=== PATIENT | male | born 1975 | race Caucasian/White ===

== ENCOUNTER → 2017-07-15 | Outpatient (CLI) | payer OTHER ==
[~2017-07-15] MED LIST: ALBUTEROL2.5 MG/3 M IH; AZITHROMYCIN 2250 MG PO; ERYTHROMYCIN E3.5 G3 OPHTHALMIC; FLEXERIL PO; NORCO 5-325 TA1 EAC1 PO; OMEPRAZOLE40 MG PO; PROMETHAZINE-D120 ML PO; PROTONIX40 M2; VICODIN 5-5001 EACH PO; VITAMIN B-12500 MCG PO; VITAMIN E400 UNIT PO; VITAMINC500 PO
== END ==
LOC: M.MRI 08:02
DX: M54.2 Cervicalgia (principal)

== ENCOUNTER → 2018-05-09 | Outpatient (CLI) | payer OTHER ==
[2018-05-09 10:29] LABS: ABSOLUTE BASOPHILS 0.1 thou/uL (0.0-0.2); ABSOLUTE EOSINOPHILS 0.2 thou/uL (0.0-0.7); ABSOLUTE LYMPHOCYTES 1.4 thou/uL (0.8-5.3); ABSOLUTE MONOCYTES 0.4 thou/uL (0.0-1.2); BASOPHILS 1.3 %; EOSINOPHILS 4.7 %; HEMATOCRIT 41.4 % (42.0-52.0); LYMPHOCYTES 28.2 %; MCH 28.4 pg (26.0-34.0); MCHC 33.9 g/dL (28.0-37.0); MCV 83.8 fL (80.0-100.0); MONOCYTES 7.4 %; MPV 7.6 fl. (7.2-11.1); NUCLEATED RBCS 0 /100WBC; PLATELET COUNT* 293 thou/uL (150-400); POLYS 58.4 %; RBC 4.94 mil/uL (4.50-6.00); RDW-CV 13.8 % (10.5-14.5); WBC 5.1 thou/uL (4.0-11.0)
[2018-05-09 10:43] LABS: ALBUMIN 3.8 g/dL (3.4-5.0); ALKALINE PHOSPHATASE 69 U/L (46-116); ANION GAP 6 mmol/L (7-16); BUN 18 mg/dL (7-18); CALCIUM 8.8 mg/dL (8.5-10.1); CHLORIDE 105 mmol/L (98-107); CHOLESTEROL 121 mg/dL (<200); CO2 29 mmol/L (21-32); CREATININE 1.1 mg/dL (0.6-1.3); DIRECT BILIRUBIN 0.1 mg/dL (<0.1-0.3); GLUCOSE 123 mg/dL (70-99); HDL CHOLESTEROL 40 mg/dL (>40); LDL CHOLESTEROL 69 mg/dL (<100); SGOT 17 U/L (15-37); SGPT 31 U/L (30-65); SODIUM 140 mmol/L (136-145); TOTAL BILIRUBIN 0.4 mg/dL (<0.1-1.0); TOTAL PROTEIN 7.3 g/dL (6.4-8.2); TRIGLYCERIDE 63 mg/dL (<150); VLDL 13 mg/dL (<40)
[2018-05-09 10:45] LABS: SERUM ASSESSMENT Clear
[2018-05-10 03:11] LABS: GLYCOHEMOGLOBIN (HGB A1C) 5.7 % (4.8-5.6)
== END ==
LOC: M.LAB 09:58
PROVIDERS: Registered Nurse Diabetes Educator
DX: Z00.00 Encounter for general adult medical examination without abnormal findings (principal); Z13.220 Encounter for screening for lipoid disorders; Z13.1 Encounter for screening for diabetes mellitus; Z12.5 Encounter for screening for malignant neoplasm of prostate

== ENCOUNTER → 2018-11-07 | Day surgery (SDC) | payer OTHER | END | disposition home or self-care (01) | LOC: M.SUR 06:33 | DX: K43.6 Other and unspecified ventral hernia with obstruction, without gangrene (principal); Z79.899 Other long term (current) drug therapy ==

== ENCOUNTER → 2019-05-08 | Outpatient (CLI) | payer OTHER ==
--- NOTE | 2019-05-08 17:27 | EXE ---
[place] [address] STRESS ECHOCARDIOGRAM Name: JUSTUS MONROE Room: [facility]#: [id number] Admission: 05/08/19 Attend Phys: Jose A Ray MD Discharge: Date of : 71 Date of Service: 05/08/19 1726 Report #: [id number] THIS REPORT FOR: cc: Terry Gaspar MD, Kevin R. MD Blick,Jose A Pastrana MD [facility] ~ THIS REPORT FOR: //name// APPROVED REPORT Study performed: 05/08/2019 15:35:10 Exam: Dobutamine Stress Echo Indication: Syncope Patient Location: Out-Patient Stress Nurse: Susan Mason RN Supervising Physician: Jose A Ray MD Ht: 6 ft 1 in HR: 67 bpm BP: 149/92 mmHg Medical History Cardiac Risk Factors: FHX of CAD Procedure The patient underwent a Pharmacological Stress Test using Dobutamine. Blood pressure, heart rate, and EKG were monitored. An Echocardiogram was performed by sample prep technician in four stages in quad fashion. At peak stress, four selected images were obtained and placed side by side with resting images for comparison. Stress Test Details Stress Test: Pharmacological Stress Test using Dobutamine. Reason for pharmacologic stress test: physical limitation. HR Resting HR: 67 bpm Max Heart Rate (APMHR): 175 bpm Max HR Achieved: 141 bpm Target HR (85% APMHR): 148 bpm % of APMHR: 80 Recovery HR: 86 bpm HR response to stress: Normal HR response to stress BP Resting BP: 149/92 [place] [address] STRESS ECHOCARDIOGRAM Name: JUSTUS MONROE Room: [facility]#: [id number] Admission: 05/08/19 Attend Phys: Jose A Ray MD Discharge: Date of : 71 Date of Service: 05/08/19 1726 Report #: [id number] Max BP: 196/77 mmHg Recovery BP: 145/87 mmHg BP response to stress: Normal blood pressure response to stress. ECG Resting ECG: Sinus Rhythm Stress ECG: Sinus Tachycardia ST Change: Normal Maximum ST Deviation: 0 mm Arrhythmia: VPC's Recovery ECG: Sinus Rhythm Recovery ST Change: Normal Recovery ST Deviation: 0 mm Recovery Arrhythmia: None Clinical Reason for Termination: Completed protocol Pre-Stress Echo The resting Echocardiogram showed normal left ventricular contractility with an estimated Ejection Fraction of about 55-60%. Post-Stress Echo The stress Echocardiogram showed normal left ventricular contractility with an estimated Ejection Fraction of about >70%. Compared to rest, there were no stress-induced wall motion abnormalities. Conclusion Clinical Response: Non-ischemic Stress ECG Response: Non-ischemic Stress Echo Images: Non-ischemic low rist dobutamine stress echo for predicting future cardiac events Other Information Study Quality: Good <Conclusion> low rist dobutamine stress echo for predicting future cardiac events <ELECTRONICALLY SIGNED> By: Jose A Ray MD, [facility] 05/08/191725 25 25 Jose A Ray MD, FAC /INF
== END ==
LOC: M.CRD 04-19 15:00
DX: R55 Syncope and collapse (principal)

== ENCOUNTER 2020-02-03 12:23 | Emergency (ER) | payer OTHER ==
[~2020-02-03] VITALS: Ht 185.4 cm; Wt 122.5 kg
[2020-02-03 13:30] VITALS: BP 133/78
== END 2020-02-03 13:30 | disposition home or self-care (01) ==
LOC: M.ERS 12:23
DX: S61.411A Laceration without foreign body of right hand, initial encounter (principal); W25.XXXA Contact with sharp glass, initial encounter; Y93.89 Activity, other specified; Y92.89 Other specified places as the place of occurrence of the external cause; Y99.8 Other external cause status

== ENCOUNTER → 2020-06-06 | Outpatient (CLI) | payer OTHER ==
[2020-06-06 08:43] LABS: ABSOLUTE BASOPHILS 0.1 thou/uL (0.0-0.2); ABSOLUTE EOSINOPHILS 0.2 thou/uL (0.0-0.7); ABSOLUTE LYMPHOCYTES 1.7 thou/uL (0.8-5.3); ABSOLUTE MONOCYTES 0.5 thou/uL (0.0-1.2); ABSOLUTE NEUTROPHILS 2.7 thou/uL (1.6-8.1); BASOPHILS 1.3 %; EOSINOPHILS 4.2 %; HEMOGLOBIN 14.4 gm/dL (14.0-18.0); LYMPHOCYTES 33.5 %; MCH 28.1 pg (26.0-34.0); MCHC 34.2 g/dL (28.0-37.0); MCV 82.1 fL (80.0-100.0); MPV 7.2 fl. (7.2-11.1); NUCLEATED RBCS 0 /100WBC; PLATELET COUNT* 273 thou/uL (150-400); RBC 5.12 mil/uL (4.50-6.00); WBC 5.2 thou/uL (4.0-11.0)
[2020-06-06 09:00] LABS: ALKALINE PHOSPHATASE 65 U/L (46-116); ANION GAP 9 mmol/L (7-16); BUN 22 mg/dL (7-18); CALCIUM 8.8 mg/dL (8.5-10.1); CHLORIDE 104 mmol/L (98-107); CO2 25 mmol/L (21-32); CREATININE 1.1 mg/dL (0.6-1.3); GLUCOSE 119 mg/dL (70-99); POTASSIUM 4.2 mmol/L (3.5-5.1); SERUM ASSESSMENT Clear; SGOT 27 U/L (15-37); SGPT 54 U/L (30-65); SODIUM 138 mmol/L (136-145); TOTAL BILIRUBIN 0.5 mg/dL (<0.1-1.0); TOTAL PROTEIN 7.5 g/dL (6.4-8.2)
[2020-06-06 16:01] LABS: CHOLESTEROL 156 mg/dL (<200); HDL CHOLESTEROL 38 mg/dL (>40); LDL CHOLESTEROL 108 mg/dL (<100); TC:HDL 4.1 Ratio (Not establshd); TRIGLYCERIDE 53 mg/dL (<150); VLDL 11 mg/dL (<40)
[2020-06-07 05:15] LABS: LDL (DIRECT) CHOL 108
== END ==
LOC: M.LAB 08:27
PROVIDERS: ATTEND Family Medicine
DX: Z00.00 Encounter for general adult medical examination without abnormal findings (principal)